=== PATIENT | male | born 1960 | race Caucasian/White ===

== ENCOUNTER 2021-07-11 11:45 | Emergency (ER) | payer OTHER ==
[~2021-07-11] VITALS: Ht 182.9 cm; Wt 79.4 kg
[2021-07-11 11:47] VITALS: BP 126/80
--- NOTE | 2021-07-11 11:59 | NUR ---
61 Y/O MALE BIBA C/O TOOTHACHE, LEFT UPPER MOLAR X 20 MINUTES WHILE HIKING IN [place] [facility]. PT ALSO C/O /10 LEFT FOOT PAIN. PER EMS, PT PICKED UP AT THE TOP OF THE MOUNTAIN WHILE USING CRUTCHES. DENIES N/V, DENIES FEVER/CHILLS. IN ED, VSS. PATIENT ALERT, COHERENT BUT DOES NOT ANSWER SOME QUESTIONS APPROPRIATELY. PT WITH NOTED LEFT CHEEK SWELLING WITH LEFT CERVIVAL LYMPHADENOPATHY. CLEAR BREATH SOUNDS. NO SWELLING, REDNESS, TENDERNESS OF BILATERAL FEET. ERMD MADE AWARE OF PT STATUS. PMH: ASTHMA NKA
[2021-07-11] MEDS ORDERED: ACETAMINOPHEN 325 MG TAB PO ONE (12:30)
[2021-07-11] MEDS ORDERED: PENI500T20 PO ×2 (12:42→14:11)
--- NOTE | 2021-07-11 12:55 | NUR ---
PT PLACED IN GOWN FOR XR.
--- NOTE | 2021-07-11 12:59 | NUR ---
PT TAKEN TO XR VIA W/C.
--- NOTE | 2021-07-11 13:11 | NUR ---
PT TAKEN TO ER BED 8 VIA W/C.
[2021-07-11] MEDS ORDERED: KETOROLAC 30 MG/ML VIAL IM ONE (13:45)
--- NOTE | 2021-07-11 13:47 | NUR ---
URINE SPECIMEN WALKED TO LAB
[2021-07-11 14:04] LABS: APPEARANCE,URINE HAZY (CLEAR); BILIRUBIN,URINE 1+ (NEGATIVE); BLOOD, URINE 1+ (NEGATIVE); COLOR,URINE YELLOW (YELLOW); LEUKOCYTE ESTERASE ,URINE NEGATIVE (NEGATIVE); NITRITE, URINE NEGATIVE (NEGATIVE); UGLUCOSE TRACE (NEGATIVE)
[2021-07-11 14:19] VITALS: BP 126/80
--- NOTE | 2021-07-11 14:19 | NUR ---
Patient discharged with v/s stable. Written and verbal after care instructions given and explained. Patient alert, oriented and verbalized understanding of instructions. Ambulatory with crutches. All questions addressed prior to discharge. ID band removed. Patient advised to follow up with PMD. Rx of PENICILLIN V given. Patient educated on indication of medication including possible reaction and side effects. Opportunity to ask questions provided and answered.
[2021-07-11 16:28] LABS: WBC,URINE 0-5 /HPF (0-5)
[2021-07-11 16:30] LABS: RBC,URINE 0-5 /HPF (0-5)
== END 2021-07-11 14:19 | disposition home or self-care (01) ==
LOC: MED 11:45
DX: R10.31 Right lower quadrant pain (principal); K08.89 Other specified disorders of teeth and supporting structures; J45.909 Unspecified asthma, uncomplicated; Z88.0 Allergy status to penicillin
CPT/HCPCS: 72170; 81001; 96372; 99284; J1885